=== PATIENT | female | born 1935 | race Native Hawaiian/Other Pacific Islander ===

== ENCOUNTER 2017-02-23 09:09 | Outpatient (CLI) | payer OTHER ==
[~2017-02-23 09:09] MED LIST: ALPR0.2566 PO; AMITRIPTYLIN50 MG PO; CARDIZEM60 M1 PO; LEVO0.0723 PO; LIPITOR40 MG PO; OXYC10TAB PO; PANT40TA PO; ULTRACET1 TAB OR
[2017-02-23 09:33] LABS: PLATELET COUNT 324 K/uL (152-353)
[2017-02-23 10:12] LABS: POTASSIUM 4.5 mmol/L (3.6-5.2)
== END 2017-02-23 10:15 | disposition home or self-care (01) ==
LOC: LABW 09:09
PROVIDERS: Internal Medicine
DX: Z00.00 Encounter for general adult medical examination without abnormal findings (principal); I10 Essential (primary) hypertension; E03.8 Other specified hypothyroidism
CPT/HCPCS: 36415; 80053; 80061; 81000; 84439; 84443; 85027

== ENCOUNTER 2017-07-29 13:11 | Outpatient (CLI) | payer OTHER | END 2017-07-29 14:45 | disposition home or self-care (01) | LOC: MAMMO 13:11 | DX: Z12.31 Encounter for screening mammogram for malignant neoplasm of breast (principal) | CPT/HCPCS: G0202-TC ==

== ENCOUNTER 2018-03-26 09:16 | Outpatient (CLI) | payer OTHER ==
[2018-03-26 09:45] LABS: PLATELET COUNT 299 K/uL (152-353)
[2018-03-26 10:10] LABS: POTASSIUM 4.9 mmol/L (3.6-5.2)
== END 2018-03-26 22:03 | disposition home or self-care (01) ==
LOC: LABW 09:16
PROVIDERS: Internal Medicine
DX: Z00.00 Encounter for general adult medical examination without abnormal findings (principal); I10 Essential (primary) hypertension; E03.8 Other specified hypothyroidism
CPT/HCPCS: 36415; 80053; 80061; 81000; 84439; 84443; 85027

== ENCOUNTER → 2018-12-27 | Outpatient (CLI) | payer OTHER | END | disposition home or self-care (01) | LOC: RAD 13:54 | DX: J40 Bronchitis, not specified as acute or chronic (principal) ==

== ENCOUNTER 2019-06-20 15:12 | Outpatient (CLI) | payer OTHER | END 2019-06-20 21:59 | disposition home or self-care (01) | LOC: RAD 15:12 | DX: Z13.820 Encounter for screening for osteoporosis (principal); J40 Bronchitis, not specified as acute or chronic ==

== ENCOUNTER 2019-06-22 08:51 | Outpatient (CLI) | payer OTHER ==
[2019-06-22 09:13] LABS: PLATELET COUNT 316 K/uL (152-353)
[2019-06-22 10:19] LABS: POTASSIUM 3.9 mmol/L (3.6-5.2)
== END 2019-06-22 22:53 | disposition home or self-care (01) ==
LOC: LABW 08:51
PROVIDERS: Internal Medicine
DX: Z00.00 Encounter for general adult medical examination without abnormal findings (principal); D64.89 Other specified anemias; I10 Essential (primary) hypertension
CPT/HCPCS: 36415; 80053; 80061; 81000; 84443; 85027

== ENCOUNTER 2019-07-18 10:23 | Outpatient (CLI) | payer OTHER | END 2019-07-18 19:16 | disposition home or self-care (01) | LOC: RAD 10:23 | DX: Z13.820 Encounter for screening for osteoporosis (principal); N95.8 Other specified menopausal and perimenopausal disorders ==

== ENCOUNTER 2021-10-10 10:28 | Outpatient (CLI) | payer OTHER | END 2021-10-10 20:46 | disposition home or self-care (01) | LOC: MRI 10:28 | PROVIDERS: ATTEND Anesthesiology Pain Medicine | DX: M54.59 Other low back pain (principal); M54.16 Radiculopathy, lumbar region ==

== ENCOUNTER 2022-01-07 17:31 | Outpatient (CLI) | payer OTHER ==
[2022-01-07 17:49] LABS: PLATELET COUNT 361 K/uL (152-353)
[2022-01-07 18:32] LABS: POTASSIUM 4.6 mmol/L (3.6-5.2)
== END 2022-01-07 19:52 | disposition home or self-care (01) ==
LOC: LAB 17:31
PROVIDERS: ATTEND Internal Medicine
DX: Z00.00 Encounter for general adult medical examination without abnormal findings (principal); Z13.820 Encounter for screening for osteoporosis; Z79.899 Other long term (current) drug therapy
CPT/HCPCS: 80053; 80061; 81000; 82306; 84439; 84443; 85027

== ENCOUNTER 2022-01-09 12:55 | Outpatient (CLI) | payer OTHER | END 2022-01-09 22:09 | disposition home or self-care (01) | LOC: RAD 12:55 | PROVIDERS: ATTEND Internal Medicine | DX: Z13.820 Encounter for screening for osteoporosis (principal); N95.8 Other specified menopausal and perimenopausal disorders ==

== ENCOUNTER 2022-05-12 10:53 | Outpatient (CLI) | payer OTHER | END 2022-05-12 19:51 | disposition home or self-care (01) | LOC: RAD 10:53 | PROVIDERS: ATTEND Pain Medicine Interventional Pain Medicine | DX: M25.562 Pain in left knee (principal) ==

== ENCOUNTER → 2022-07-15 | Outpatient (CLI) | payer OTHER | LOC: MRI 12:11 | PROVIDERS: ATTEND Pain Medicine Interventional Pain Medicine | DX: M54.17 Radiculopathy, lumbosacral region (principal) ==

== ENCOUNTER 2023-02-02 12:29 | Outpatient (CLI) | payer OTHER ==
[2023-02-02 12:52] LABS: PLATELET COUNT 289 K/uL (152-353)
[2023-02-02 13:06] LABS: POTASSIUM 4.5 mmol/L (3.6-5.2)
== END 2023-02-02 19:09 | disposition home or self-care (01) ==
LOC: LAB 12:29
PROVIDERS: ATTEND Internal Medicine
DX: Z00.00 Encounter for general adult medical examination without abnormal findings (principal); Z13.820 Encounter for screening for osteoporosis; E55.9 Vitamin D deficiency, unspecified; Z79.899 Other long term (current) drug therapy; I10 Essential (primary) hypertension
CPT/HCPCS: 80053; 80061; 81002; 82306; 84439; 84443; 85027